=== PATIENT | female | born 1940 | race Caucasian/White ===

== ENCOUNTER 2021-09-24 06:45 | Emergency (ER) | payer MEDICARE, BC ==
[2021-09-24] MEDS ORDERED: HYDROcodone/Acetaminophen 5/325 mg Tablet ONE (09:08)
== END 2021-09-24 09:38 | disposition home or self-care (01) ==
LOC: CSHERS 06:45
DX: G62.9 Polyneuropathy, unspecified (principal); I10 Essential (primary) hypertension
CPT/HCPCS: 72131; 72192